=== PATIENT | female | born 2000 | race African-American/Black ===

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

== ENCOUNTER 2019-09-05 11:42 | Emergency (ER) | payer SELFPAY ==
[~2019-09-05] VITALS: Ht 160 cm; Wt 61.2 kg
[2019-09-05 12:10] VITALS: BP 119/72
[2019-09-05] MEDS ORDERED: IBUPROFEN 800 MG TAB PO ONE (14:15)
== END 2019-09-05 14:53 | disposition home or self-care (01) ==
LOC: ER 11:42
DX: M25.022 Hemarthrosis, left elbow (principal)
CPT/HCPCS: 29105; 73080

== ENCOUNTER 2020-07-18 11:21 | Emergency (ER) | payer MEDICAID ==
[~2020-07-18] VITALS: Ht 160 cm; Wt 65.8 kg
[2020-07-18 11:29] VITALS: BP 104/77
[2020-07-18] MEDS ORDERED: TETANUS-DIPTH-ACEL PERTUSSIS 0.5ML SYR Tdap IM ONE (12:00)
[2020-07-18] MEDS ORDERED: cefTRIAXone SOD 1,000 MG VL IM ONE (12:00)
[2020-07-18] MEDS ORDERED: IBUPROFEN 800 MG TAB PO ONE (12:45)
== END 2020-07-18 12:45 | disposition home or self-care (01) ==
LOC: ER 11:21
DX: S62.623A Displaced fracture of middle phalanx of left middle finger, initial encounter for closed fracture (principal); W18.09XA Striking against other object with subsequent fall, initial encounter; Y93.89 Activity, other specified; Y92.89 Other specified places as the place of occurrence of the external cause; Y99.8 Other external cause status
CPT/HCPCS: 29130; 73130

== ENCOUNTER 2021-03-20 16:31 | Emergency (ER) | payer SELFPAY ==
[~2021-03-20] VITALS: Ht 160 cm; Wt 58.5 kg
[2021-03-20 18:57] VITALS: BP 104/77
[2021-03-20 19:14] LABS: Urine Bacteria NONE SEEN /hpf (None Seen); Urine Blood 3+ /uL (Negative); Urine Mucus FEW (None Seen); Urine WBC 8 /hpf (0 - 5)
== END 2021-03-20 19:37 | disposition home or self-care (01) ==
LOC: ER 16:38
DX: N76.0 Acute vaginitis (principal); N39.0 Urinary tract infection, site not specified; R51.9 Headache, unspecified; Z32.02 Encounter for pregnancy test, result negative
CPT/HCPCS: 81001; 81025; 87210

== ENCOUNTER 2021-05-22 10:45 | Emergency (ER) | payer SELFPAY ==
[~2021-05-22] VITALS: Ht 160 cm; Wt 64.4 kg
[2021-05-22 12:00] VITALS: BP 133/84
== END 2021-05-22 12:14 | disposition home or self-care (01) ==
LOC: ER 10:45
DX: J40 Bronchitis, not specified as acute or chronic (principal); F12.10 Cannabis abuse, uncomplicated; Z20.822 Contact with and (suspected) exposure to COVID-19
CPT/HCPCS: 36415; 71045; 87426

== ENCOUNTER 2021-08-20 08:20 | Emergency (ER) | payer SELFPAY ==
[~2021-08-20] VITALS: Ht 160 cm; Wt 59.0 kg
[2021-08-20] MEDS ORDERED: DexAMETHasone SOD PHOS 10MG/1ML VIAL INJ IM ONE ×2 (09:15→09:45)
[2021-08-20 09:23] VITALS: BP 118/76
== END 2021-08-20 09:46 | disposition home or self-care (01) ==
LOC: ER 08:20
DX: J02.9 Acute pharyngitis, unspecified (principal)

== ENCOUNTER 2022-09-17 13:47 | Emergency (ER) | payer MEDICAID ==
[~2022-09-17] VITALS: Ht 160 cm; Wt 54.8 kg
[2022-09-17] MEDS ORDERED: AZIT250T8 PO (15:30)
[2022-09-17] MEDS ORDERED: IBUP600T28 PO (15:30)
[2022-09-17 15:33] VITALS: BP 102/78
== END 2022-09-17 15:45 | disposition home or self-care (01) ==
LOC: ER 13:47
DX: J03.90 Acute tonsillitis, unspecified (principal); F12.90 Cannabis use, unspecified, uncomplicated
CPT/HCPCS: 71045

== ENCOUNTER 2022-11-07 10:04 | Emergency (ER) | payer SELFPAY ==
[~2022-11-07] VITALS: Ht 160 cm; Wt 55.3 kg
[~2022-11-07 10:04] MED LIST: AZIT250T8 PO; IBUP600T28 PO
[2022-11-07 11:44] VITALS: BP 113/79
[2022-11-07] MEDS ORDERED: NAPR500T31 PO (12:14)
[2022-11-07] MEDS ORDERED: IBUPROFEN 600 MG TAB PO ONE (12:15)
== END 2022-11-07 12:40 | disposition home or self-care (01) ==
LOC: ER 10:04
DX: S60.111A Contusion of right thumb with damage to nail, initial encounter (principal); Z79.899 Other long term (current) drug therapy; F12.90 Cannabis use, unspecified, uncomplicated; X58.XXXA Exposure to other specified factors, initial encounter; Y93.89 Activity, other specified; Y92.89 Other specified places as the place of occurrence of the external cause; Y99.8 Other external cause status
CPT/HCPCS: 11740; 73140

== ENCOUNTER 2024-10-26 12:03 | Emergency (ER) | payer MEDICAID ==
[~2024-10-26] VITALS: Ht 160 cm; Wt 63.6 kg
[~2024-10-26 12:03] MED LIST changes: +AZIT-185 PO; -AZIT250T8 PO; +IBUP1TAB5 PO; -IBUP600T28 PO; +NAPR-746 PO
[2024-10-26] MEDS: ACETAMINOPHEN 325 MG TAB PO ONE (16:45)
--- NOTE | 2024-10-26 16:50 | ED.PDOC ---
History of Present Illness HPI Comments 24Y F presents to ED via EMS for chief complaint body pain x2days with SOB, fever, nausea, and productive cough. Pt denies chest pain and urinary symptoms. Pt took one of grandmother's [place] tablets at home. Pt states she does not know if the [place] helped alleviate symptoms as it made her go to sleep. Chief Complaint: Body Pain Time Seen by MD: 16:42 Primary Care Provider: None Reviewed Notes: Nurses Notes, Medications, Allergies Allergies: Coded Allergies: NO KNOWN ALLERGIES (Unverified , 07/06/14) Home Meds Active Scripts Potassium Chloride (Potassium Chloride ER) 10 Meq Tab, 10 MEQ PO BID for 10 Days, #20 TAB Prov:TONI LAWRENCE MD 10/26/24 Naproxen (Naproxen) 500 Mg Tab, 500 MG PO BID, #24 TAB Prov:ITZEL DODSON 11/07/22 Ibuprofen Micronized (Ibuprofen) 600 Mg Tab, 600 MG PO QID, #30 TAB Prov:ITZEL DODSON 09/17/22 Azithromycin (ZITHROMAX TABLET) 250 Mg Tb, 250 MG PO DAILY, #6 TAB Prov:ITZEL DODSON 09/17/22 Information Source: Patient, Relative (Grand mother) Mode of Arrival: EMS Severity: Mild Timing: Days Duration: Since onset Prehospital treatment: Accucheck Past Medical History PAST MEDICAL HISTORY: Denies Surgical History: Denies all surgeries WEIGHT SHIFTER History: No Pertinent WEIGHT SHIFTER History Family History Family History: Reviewed,noncontributory to illness Social History Smoker: Non-Smoker Alcohol: Denies ETOH Use Drugs: Marijuana Lives In: Home Constitutional: reports: fever; denies: chills, diaphoresis, fatigue, malaise, sweats, weakness, others EENTM: denies: blurred vision, double vision, ear bleeding, ear discharge, ear drainage, ear pain, ear ringing, eye pain, eye redness, hearing loss, mouth pain, mouth swelling, nasal discharge, nose bleeding, nose congestion, nose pain, photophobia, tearing, throat pain, throat swelling, voice changes, others Respiratory: reports: cough, shortness of breath; denies: hemoptysis, orthopnea, SOB at rest, SOB with excertion, stridor, wheezing, others Cardiovascular: denies: chest pain, dizzy spells, diaphoresis, Dyspnea on exertion, edema, irregular heart beat, left arm pain, lightheadedness, palpitations, PND, syncope, others Gastrointestinal: reports: nausea; denies: abdomen distended, abdominal pain, blood streaked bowels, constipated, diarrhea, dysphagia, difficulty swallowing, hematemesis, melena, poor appetite, poor fluid intake, rectal bleeding, rectal pain, vomiting, others Genitourinary: denies: abnormal vagina bleeding, burning, dyspareunia, dysuria, flank pain, frequency, hematuria, incontinence, pain, , vagina discharge, urgency, others Neurological: denies: dizziness, fainting, headache, left sided numbness, left sided weakness, numbness, paresthesia, pre-existing deficit, right sided numbness, right sided weakness, seizure, speech problems, tingling, tremors, weakness, others Musculoskeletal: reports: muscle pain; denies: back pain, gout, joint pain, joint swelling, muscle stiffness, neck pain, others Integumetry: denies: bruises, change in color, change in hair/nails, dryness, laceration, lesions, lumps, rash, wounds, others Allergic/Immunocompromised: denies: Difficulty Healing, Frequent Infections, Hives, Itching, others Hematologic/Lymphatic: denies: anemia, blood clots, easy bleeding, easy bruising, swollen glands, others Endocrine: denies: excessive hunger, excessive sweating, excessive thirst, excessive urination, flushing, intolerance to cold, intolerance to heat, unexplained weight gain, unexplained weight loss, others Psychiatric: denies: anxiety, bipolar disorder, depression, hopeless, panic disorder, schizophrenia, sleepless, suicidal, others All Other Systems: Reviewed and Negative Physical Exam General Appearance: No Apparent Distress, Normal HEENT: Normal ENT Inspection, Pharynx Normal, TMs Normal Neck: Full Range of Motion, Non-Tender, Normal, Normal Inspection Respiratory: Chest Non-Tender, Lungs Clear, No Accessory Muscle Use, No Respiratory Distress, Normal Breath Sounds Cardiovascular: No Edema, No JVD, No Murmur, No Gallop, Normal Peripheral Pulses, Regular Rate/Rhythm Breast Exam: Deferred Gastrointestinal: No Organomegaly, Non Tender, No Pulsatile Mass, Normal Bowel Sounds, Soft Genitalia: Deferred Pelvic: Deferred Rectal: Deferred Extremities: No calf tenderness, Normal capillary refill, Normal inspection, Normal range of motion, Non-tender, No pedal edema Musculoskeletal : Apperance: Normal Neurologic: Alert, operator command support systems II-XII nml as Tested, No Motor Deficits, Normal Affect, Normal Mood, No Sensory Deficits Cerebellar Function: NOT DONE Reflexes: NOT DONE Skin: Dry, Normal Color, Warm Lymphatic: No Adenopathy Was a procedure done? Was a procedure done?: No Differential Dx Considerations may include: Differential diagnosis includes but not limited to: Pneumonia, influenza, Covid- 19, bronchospasm, sepsis and others X-Ray, Labs, Meds, VS Vital Signs Date Time Temp Pulse Resp B/P (MAP) Pulse Ox O2 Delivery O2 Flow Rate FiO2 10/26/24 18:00 103 18 105/66 10/26/24 17:29 103 18 99 10/26/24 17:29 102.3 103 18 105/66 (79) 99 102.3 10/26/24 16:45 102.3 10/26/24 12:13 99.5 101 24 116/64 (81) 99 10/26/24 12:12 99 Nasal Cannula* 2 28 Lab Test 10/26/24 17:50 10/26/24 17:42 10/26/24 17:21 Range/Units Urine Color Yellow Yellow Urine Clarity Clear Clear Urine pH 7.0 5.0-9.0 Urine Specific [place] 1.035 1.001-1.035 Urine Protein Trace H Negative Urine Ketones 2+ H Negative Urine Blood Negative Negative /uL Urine Nitrite Negative Negative Urine Bilirubin Negative Negative Urine Urobilinogen 3 H Negative mg/dL Urine Leukocyte Esterase Negative Negative /uL Urine RBC 1 0 - 4 /hpf Urine WBC <1 0 - 5 /hpf Urine Squamous Epithelial Cells Few <5 /hpf Urine Bacteria None seen None Seen /hpf Urine Mucus Few None Seen Urine Glucose Normal Normal mg/dL Urine Test Negative Negative White Blood Count 3.4 L 4.4-10.8 10^3/uL Red Blood Count 4.30 4.0-5.20 10^6/uL Hemoglobin 12.1 L 12.2-16.2 g/dL Hematocrit 36.1 36.0-46.0 % Mean Corpuscular Volume 84.0 80.0-100.0 fL Mean Corpuscular Hemoglobin 28.2 28.0-32.0 pg Mean Corpuscular Hemoglobin Concent 33.6 32.0-36.0 g/dL Red Cell Distribution Width 13.2 11.8-14.3 % Platelet Count 193 140-450 10^3/uL Mean Platelet Volume 8.9 6.9-10.8 fL Neutrophils (%) (Auto) 64.1 37.0-80.0 % Lymphocytes (%) (Auto) 21.4 10.0-50.0 % Monocytes (%) (Auto) 13.2 H 0.0-12.0 % Eosinophils (%) (Auto) 0.9 0.0-7.0 % Basophils (%) (Auto) 0.4 0.0-2.0 % Neutrophils # (Auto) 2.2 1.6-8.6 10 ^3/uL Lymphocytes # (Auto) 0.7 0.4-5.4 10 ^3/uL Monocytes # (Auto) 0.4 0-1.3 10 ^3/uL Eosinophils # (Auto) 0 0-0.8 10 ^3/uL Basophils # (Auto) 0 0-0.2 10 ^3/uL Nucleated Red Blood Cells 0.1 % Sodium Level 140 136-145 mmol/L Potassium Level 3.0 L 3.5-5.1 mmol/L Chloride Level 106 98-107 mmol/L Carbon Dioxide Level 25 20-31 mmol/L Anion Gap 9 5-15 Blood Urea Nitrogen 10 9-23 mg/dL Creatinine 0.78 0.550-1.02 mg/dL Glomerular Filtration Rate Calc 108 >90 mL/min BUN/Creatinine Ratio 12.8 10.0-20.0 Serum Glucose 89 74-106 mg/dL Calcium Level 10.0 8.7-10.4 mg/dL Influenza Type A Antigen Negative Negative Influenza Type B Antigen Negative Negative SARS-CoV-2 Antigen (Rapid) Negative NEGATIVE Current Medications Medications (Trade) Dose Ordered Sig/Ophelia Route Start Time Stop Time Status Last Admin Acetaminophen (Tylenol Tablet) 650 mg ONCE ONCE PO 10/26/24 16:45 10/26/24 16:47 DC 10/26/24 16:45 Ondansetron HCl (Zofran) 4 mg ONCE ONCE IV 10/26/24 16:45 10/26/24 16:47 DC 10/26/24 17:57 Morphine Sulfate 4 mg ONCE ONCE IV 10/26/24 16:45 1/2/25 16:47 DC 10/26/24 18:00 Famotidine (Pepcid Injection) 20 mg ONCE ONCE IV 10/26/24 16:45 10/26/24 16:47 DC 10/26/24 17:58 Time of 1ST Reevaluation: 17:12 Reevaluation 1ST: Unchanged Patient Education/Counseling: Diagnosis, Treatment Family Education/Counseling: Diagnosis, Treatment Departure 1 Departure Time of Disposition: 19:08 Impression: Primary Impression: URI (upper respiratory infection) Additional Impression: Hypokalemia Disposition: 01 HOME / SELF CARE / HOMELESS Condition: Stable e-Prescriptions Potassium Chloride (Potassium Chloride ER) 10 Meq Tab 10 MEQ PO BID for 10 Days, #20 TAB Prov: TONI LAWRENCE MD 10/26/24 Discharged With: Self Critical Care Note Critical Care Time?: No Stability Stability form required: No Heart Score Heart Score: Heart Score Response (Comments) Value History N/A 0 EKG N/A 0 Age N/A 0 Risk Factors N/A 0 Troponin N/A 0 Total 0 I personally scribed for BRIJESH LIRA MD ([email or web address]) on 10/26/24 at 16:50. Electronically submitted by Jennifer Barker ([email or web address]). BRIJESH LIRA MD Oct 26, 2024 16:50 TONI LAWRENCE MD Oct 26, 2024 19:10
[2024-10-26] MEDS: ONDANSETRON HCL 4 MG/2 ML VIAL IV ONE (17:57)
[2024-10-26] MEDS: FAMOTIDINE (10MG/ML) 2ML VL IV ONE (17:58)
[2024-10-26] MEDS: MORPHINE SULFATE 4 MG/ML SYR/VIAL IV ONE (18:00)
[2024-10-26 18:01] LABS: Urine Bacteria None Seen /hpf (None Seen)
[2024-10-26 18:03] LABS: Basophils # (auto) 0 10 ^3/uL (0-0.2); Basophils % (auto) 0.4 % (0.0-2.0); Eosinophils # (auto) 0 10 ^3/uL (0-0.8); Eosinophils % (auto) 0.9 % (0.0-7.0); Hematocrit 36.1 % (36.0-46.0); Hemoglobin 12.1 g/dL (12.2-16.2); Lymphocytes # (auto) 0.7 10 ^3/uL (0.4-5.4); Lymphocytes % (auto) 21.4 % (10.0-50.0); Mean Corpuscular Hemoglobin 28.2 pg (28.0-32.0); Mean Corpuscular Hgb Conc. 33.6 g/dL (32.0-36.0); Monocytes # (auto) 0.4 10 ^3/uL (0-1.3); Monocytes % (auto) 13.2 % (0.0-12.0); Neutrophils # (auto) 2.2 10 ^3/uL (1.6-8.6); Neutrophils % (auto) 64.1 % (37.0-80.0); Nucleated Red Blood Cells % 0.1 %; Platelet Count (auto) 193 10^3/uL (140-450); Red Cell Distribution Width 13.2 % (11.8-14.3); White Blood Cell 3.4 10^3/uL (4.4-10.8)
[2024-10-26 18:11] LABS: Chloride 106 mmol/L (98-107); Sodium 140 mmol/L (136-145)
[2024-10-26 18:12] LABS: Urine Blood Negative /uL (Negative); Urine Clarity Clear (Clear); Urine Color Yellow (Yellow); Urine Mucus FEW (None Seen); Urine Protein, UAD TRACE (Negative); Urine Specific Gravity 1.035 (1.001-1.035); Urine Squamous Epithelial Cell FEW /hpf (<5); Urine Urobilinogen 3 mg/dL (Negative); Urine WBC <1 /hpf (0 - 5)
[2024-10-26 18:12] LABS: Anion Gap 9 (5-15); Carbon Dioxide 25 mmol/L (20-31)
[2024-10-26 18:17] LABS: BUN/Creatinine Ratio 12.8 (10.0-20.0); Blood Urea Nitrogen 10 mg/dL (9-23); Glucose 89 mg/dL (74-106)
[2024-10-26 18:19] LABS: COVID19 ANTIGEN SOFIA FIA NEGATIVE (NEGATIVE)
[2024-10-26 18:20] LABS: Rapid Influenza A Negative (Negative); Rapid Influenza B Negative (Negative)
--- NOTE | 2024-10-26 18:48 | DVH ---
CHEST RADIOGRAPH Indication: cough Technique: Frontal and lateral view of the chest was obtained Comparison: None FINDINGS: Lines and Tubes: None Lungs: Clear Pleura: No effusion. No pneumothorax. Cardiomediastinal contours: Unremarkable Bones: Unremarkable IMPRESSION: 1. No evidence of acute disease.
[2024-10-26] MEDS ORDERED: POTA-228 PO (19:07)
[2024-10-26] MEDS: POTASSIUM CHL 20 Meq TABLET PO ONE (19:34)
[2024-10-26 19:40] VITALS: BP 112/62; PULSE 86; RESP 17; TEMP 99.4; O2SAT 98
== END 2024-10-26 19:41 | disposition home or self-care (01) ==
LOC: EDBD 12:03 → EDUNIT# 12:03 → ER 12:03
DX: E87.6 Hypokalemia (principal); J06.9 Acute upper respiratory infection, unspecified; Z79.899 Other long term (current) drug therapy; Z20.822 Contact with and (suspected) exposure to COVID-19
CPT/HCPCS: 36415; 71046; 80048; 81001; 81025; 85025; 87426; 87804; 96374; 96375; 99284; J2270; J2405; J3490

== ENCOUNTER 2024-10-30 15:01 | Emergency (ER) | payer MEDICAID ==
[~2024-10-30] VITALS: Ht 154.9 cm; Wt 58.5 kg
[~2024-10-30 15:01] MED LIST changes: +POTA-228 PO
[2024-10-30 16:59] LABS: Basophils # (auto) 0 10 ^3/uL (0-0.2); Eosinophils # (auto) 0 10 ^3/uL (0-0.8); Eosinophils % (auto) 0.6 % (0.0-7.0); Hematocrit 41.4 % (36.0-46.0); Hemoglobin 13.5 g/dL (12.2-16.2); Lymphocytes # (auto) 1.9 10 ^3/uL (0.4-5.4); Lymphocytes % (auto) 48.8 % (10.0-50.0); Mean Corpuscular Hemoglobin 27.3 pg (28.0-32.0); Mean Corpuscular Hgb Conc. 32.6 g/dL (32.0-36.0); Mean Corpuscular Volume 83.6 fL (80.0-100.0); Monocytes # (auto) 0.3 10 ^3/uL (0-1.3); Monocytes % (auto) 7.8 % (0.0-12.0); Neutrophils # (auto) 1.6 10 ^3/uL (1.6-8.6); Neutrophils % (auto) 41.8 % (37.0-80.0); Nucleated Red Blood Cells % 0.1 %; Platelet Count (auto) 258 10^3/uL (140-450); Red Blood Cells 4.96 10^6/uL (4.0-5.20); White Blood Cell 3.9 10^3/uL (4.4-10.8)
[2024-10-30 17:11] LABS: Chloride 106 mmol/L (98-107); Potassium 4.2 mmol/L (3.5-5.1); Sodium 141 mmol/L (136-145)
[2024-10-30 17:12] LABS: Anion Gap 9 (5-15); Carbon Dioxide 26 mmol/L (20-31)
[2024-10-30 17:17] LABS: Alkaline Phosphatase 79 U/L (46-116); BUN/Creatinine Ratio 11.3 (10.0-20.0); Glucose 81 mg/dL (74-106)
[2024-10-30 17:19] LABS: Albumin 5.1 g/dL (3.2-4.8); Aspartate Aminotransferase 17 U/L (13-40); Bilirubin, Total 0.5 mg/dL (0.2-1.0); Blood Urea Nitrogen 8 mg/dL (9-23); Calcium 10.7 mg/dL (8.7-10.4); Total Protein 8.3 g/dL (5.7-8.2)
[2024-10-30 17:48] LABS: Alanine Aminotransferase 12 U/L (7-40)
[2024-10-30] MEDS ORDERED: PROM1SOL4 PO (18:53)
[2024-10-30] MEDS ORDERED: MONT10TA23 PO (18:53)
[2024-10-30] MEDS ORDERED: AZITTAB PO (18:53)
--- NOTE | 2024-10-30 18:53 | ED.PDOC ---
History of Present Illness HPI Comments 24-year-old female complaining of cough and congestion x1 week. States she was seen last week for her coughing congestion. She was only prescribed potassium 10 mEq use. Says she was having some nausea and vomiting. No diarrhea. No chest pain no shortness a breath. States her congestion is still not improved. Chief Complaint: Nausea/Vomiting Time Seen by MD: 15:49 Primary Care Provider: none Reviewed Notes: Nurses Notes Allergies: Coded Allergies: NO KNOWN ALLERGIES (Unverified , 07/06/14) Home Meds Active Scripts Potassium Chloride (Potassium Chloride ER) 10 Meq Tab, 10 MEQ PO BID for 10 Days, #20 TAB Prov:TONI LAWRENCE MD 10/26/24 Naproxen (Naproxen) 500 Mg Tab, 500 MG PO BID, #24 TAB Prov:ITZEL DODSON 11/07/22 Ibuprofen Micronized (Ibuprofen) 600 Mg Tab, 600 MG PO QID, #30 TAB Prov:ITZEL DODSON 09/17/22 Azithromycin (ZITHROMAX TABLET) 250 Mg Tb, 250 MG PO DAILY, #6 TAB Prov:ITZEL DODSON 09/17/22 Information Source: Patient Mode of Arrival: Ambulatory Past Medical History PAST MEDICAL HISTORY: Denies Surgical History: Denies all surgeries ALTERATION TAILOR APPRENTICE History: No Pertinent ALTERATION TAILOR APPRENTICE History Family History Family History: Reviewed,noncontributory to illness Social History Smoker: Non-Smoker Alcohol: Denies ETOH Use Drugs: Marijuana Lives In: Home Constitutional: denies: chills, diaphoresis, fatigue, fever, malaise, sweats, weakness, others EENTM: reports: nose congestion; denies: blurred vision, double vision, ear bleeding, ear discharge, ear drainage, ear pain, ear ringing, eye pain, eye redness, hearing loss, mouth pain, mouth swelling, nasal discharge, nose bleeding, nose pain, photophobia, tearing, throat pain, throat swelling, voice changes, others Respiratory: reports: cough; denies: hemoptysis, orthopnea, SOB at rest, shortness of breath, SOB with excertion, stridor, wheezing, others Cardiovascular: denies: chest pain, dizzy spells, diaphoresis, Dyspnea on exertion, edema, irregular heart beat, left arm pain, lightheadedness, palpitations, PND, syncope, others Gastrointestinal: reports: nausea, vomiting; denies: abdomen distended, abdominal pain, blood streaked bowels, constipated, diarrhea, dysphagia, difficulty swallowing, hematemesis, melena, poor appetite, poor fluid intake, rectal bleeding, rectal pain, others Genitourinary: denies: abnormal vagina bleeding, burning, dyspareunia, dysuria, flank pain, frequency, hematuria, incontinence, pain, , vagina discharge, urgency, others Neurological: denies: dizziness, fainting, headache, left sided numbness, left sided weakness, numbness, paresthesia, pre-existing deficit, right sided numbness, right sided weakness, seizure, speech problems, tingling, tremors, weakness, others Musculoskeletal: denies: back pain, gout, joint pain, joint swelling, muscle pain, muscle stiffness, neck pain, others Integumetry: denies: bruises, change in color, change in hair/nails, dryness, laceration, lesions, lumps, rash, wounds, others Allergic/Immunocompromised: denies: Difficulty Healing, Frequent Infections, Hives, Itching, others Hematologic/Lymphatic: denies: anemia, blood clots, easy bleeding, easy bruising, swollen glands, others Endocrine: denies: excessive hunger, excessive sweating, excessive thirst, excessive urination, flushing, intolerance to cold, intolerance to heat, unexplained weight gain, unexplained weight loss, others Psychiatric: denies: anxiety, bipolar disorder, depression, hopeless, panic disorder, schizophrenia, sleepless, suicidal, others Physical Exam General Appearance: No Apparent Distress, Normal HEENT: Normal ENT Inspection, Pharynx Normal, TMs Normal Neck: Full Range of Motion, Non-Tender, Normal, Normal Inspection Respiratory: Chest Non-Tender, Lungs Clear, No Accessory Muscle Use, No Respiratory Distress, Normal Breath Sounds Cardiovascular: No Edema, No JVD, No Murmur, No Gallop, Normal Peripheral Pulses, Regular Rate/Rhythm Breast Exam: Deferred Gastrointestinal: No Organomegaly, Non Tender, No Pulsatile Mass, Normal Bowel Sounds, Soft Genitalia: Deferred Pelvic: Deferred Rectal: Deferred Extremities: No calf tenderness, Normal capillary refill, Normal inspection, Normal range of motion, Non-tender, No pedal edema Musculoskeletal : Apperance: Normal Neurologic: Alert, shank breaker II-XII nml as Tested, No Motor Deficits, Normal Affect, Normal Mood, No Sensory Deficits Cerebellar Function: Normal Reflexes: Normal Skin: Dry, Normal Color, Warm Lymphatic: No Adenopathy Was a procedure done? Was a procedure done?: No Differential Dx Considerations may include: URI, influenza, COVID, strep throat, pharyngitis, pneumonia X-Ray, Labs, Meds, VS Vital Signs Date Time Temp Pulse Resp B/P (MAP) Pulse Ox O2 Delivery O2 Flow Rate FiO2 10/30/24 16:08 98.0 91 17 121/83 (96) 100 Lab Test 10/30/24 16:37 Range/Units White Blood Count 3.9 L 4.4-10.8 10^3/uL Red Blood Count 4.96 4.0-5.20 10^6/uL Hemoglobin 13.5 12.2-16.2 g/dL Hematocrit 41.4 # 36.0-46.0 % Mean Corpuscular Volume 83.6 80.0-100.0 fL Mean Corpuscular Hemoglobin 27.3 L 28.0-32.0 pg Mean Corpuscular Hemoglobin Concent 32.6 32.0-36.0 g/dL Red Cell Distribution Width 13.0 11.8-14.3 % Platelet Count 258 140-450 10^3/uL Mean Platelet Volume 8.7 6.9-10.8 fL Neutrophils (%) (Auto) 41.8 37.0-80.0 % Lymphocytes (%) (Auto) 48.8 10.0-50.0 % Monocytes (%) (Auto) 7.8 0.0-12.0 % Eosinophils (%) (Auto) 0.6 0.0-7.0 % Basophils (%) (Auto) 1.0 0.0-2.0 % Neutrophils # (Auto) 1.6 1.6-8.6 10 ^3/uL Lymphocytes # (Auto) 1.9 0.4-5.4 10 ^3/uL Monocytes # (Auto) 0.3 0-1.3 10 ^3/uL Eosinophils # (Auto) 0 0-0.8 10 ^3/uL Basophils # (Auto) 0 0-0.2 10 ^3/uL Nucleated Red Blood Cells 0.1 % Sodium Level 141 136-145 mmol/L Potassium Level 4.2 3.5-5.1 mmol/L Chloride Level 106 98-107 mmol/L Carbon Dioxide Level 26 20-31 mmol/L Anion Gap 9 5-15 Blood Urea Nitrogen 8 L 9-23 mg/dL Creatinine 0.71 0.550-1.02 mg/dL Glomerular Filtration Rate Calc 121 >90 mL/min BUN/Creatinine Ratio 11.3 10.0-20.0 Serum Glucose 81 74-106 mg/dL Calcium Level 10.7 H 8.7-10.4 mg/dL Total Bilirubin 0.5 0.2-1.0 mg/dL Aspartate Amino Transferase (AST) 17 13-40 U/L Alanine Aminotransferase (ALT) 12 7-40 U/L Alkaline Phosphatase 79 46-116 U/L Total Protein 8.3 H 5.7-8.2 g/dL Albumin 5.1 H 3.2-4.8 g/dL X-Ray, Labs, Meds, VS Comment Imaging: X-rays and CT scans were reviewed and interpreted by this provider, imaging shows no fractures and no pathological disease. Pending radiology review. Laboratory: Labs reviewed and interpreted by this provider. No significant abnormalities noted. Patient has prior medical visits reviewed. Med reconciliation performed Vital signs reviewed Time of 1ST Reevaluation: 18:53 Reevaluation 1ST: Improved Patient Education/Counseling: Diagnosis, Treatment, Need For Follow Up (Patient advised to follow-up in the emergency room in the next 24 to 48 hours if symptoms do not improve. Advised follow-up with PCP in the next 3 to 5 days. Patient verbalized understanding. ) Family Education/Counseling: Diagnosis Departure 1 Departure Time of Disposition: 18:51 Impression: Primary Impression: URI (upper respiratory infection) Qualified Codes: J06.9 - Acute upper respiratory infection, unspecified Disposition: HOME / SELF CARE / HOMELESS Condition: Fair e-Prescriptions Promethazine-Dm (Promethazine Dm 6.25-15 mg/5Ml) 1 Kamilla Kamilla 5 ML PO TID PRN, #240 ML Prov: KRYSTEN WILSON 10/30/24 Montelukast Sodium (Singulair) 10 Mg Tab 10 MG PO DAILY for 30 Days, #30 TAB Prov: KRYSTEN WILSON 10/30/24 Azithromycin (Zithromax Z-Andi) 250 Mg Tab 250 MG PO DAILY for 5 Days, #6 TAB Prov: KRYSTEN WILSON 10/30/24 Discharged With: Self Critical Care Note Critical Care Time?: No Stability Stability form required: No Heart Score Heart Score: Heart Score Response (Comments) Value History N/A 0 EKG N/A 0 Age N/A 0 Risk Factors N/A 0 Troponin N/A 0 Total 0 KRYSTEN WILSON Oct 30, 2024 18:53
--- NOTE | 2024-10-30 18:57 | ED.PDOC ---
History of Present Illness HPI Comments 24 y/o F presents with c/o cough, congestion, nausea, and vomiting, today. Patient endorses on having cough and congestion for, approximately, 1x week, with recent onset of nausea and vomiting symptoms, lately. She comments on being, medically, evaluated and discharged from [facility], recently, with K+ supplements that she endorses on having no improvement or relief of her symptoms since. She denies having any fever, chills, hematemesis, headache, abdominal pain, or other associated symptoms or modifiers at this time. Chief Complaint: Nausea/Vomiting Time Seen by MD: 16:00 Primary Care Provider: none Reviewed Notes: Nurses Notes, Medications, Allergies Allergies: Coded Allergies: NO KNOWN ALLERGIES (Unverified , 07/06/14) Home Meds Active Scripts Potassium Chloride (Potassium Chloride ER) 10 Meq Tab, 10 MEQ PO BID for 10 Days, #20 TAB Prov:TONI LAWRENCE MD 10/26/24 Naproxen (Naproxen) 500 Mg Tab, 500 MG PO BID, #24 TAB Prov:ITZEL DODSON 11/07/22 Ibuprofen Micronized (Ibuprofen) 600 Mg Tab, 600 MG PO QID, #30 TAB Prov:ITZEL DODSON 09/17/22 Azithromycin (ZITHROMAX TABLET) 250 Mg Tb, 250 MG PO DAILY, #6 TAB Prov:ITZEL DODSON 09/17/22 Information Source: Patient Mode of Arrival: Ambulatory Severity: Moderate Timing: Weeks Duration: Since onset Prehospital treatment: None Past Medical History PAST MEDICAL HISTORY: Denies Surgical History: Denies all surgeries DYSLEXIA TEACHER History: No Pertinent DYSLEXIA TEACHER History Family History Family History: Reviewed,noncontributory to illness Social History Smoker: Non-Smoker Alcohol: Denies ETOH Use Drugs: Marijuana Lives In: Home EENTM: reports: nose congestion Respiratory: reports: cough Gastrointestinal: reports: nausea, vomiting All Other Systems: Reviewed and Negative (negative unless otherwise stated above or in HPI) Physical Exam General Appearance: No Apparent Distress, Normal HEENT: Normal ENT Inspection, Pharynx Normal, TMs Normal Neck: Full Range of Motion, Non-Tender, Normal, Normal Inspection Respiratory: Chest Non-Tender, Lungs Clear, No Accessory Muscle Use, No Respiratory Distress, Normal Breath Sounds Cardiovascular: No Edema, No JVD, No Murmur, No Gallop, Normal Peripheral Pulses, Regular Rate/Rhythm Breast Exam: Deferred Gastrointestinal: No Organomegaly, Non Tender, No Pulsatile Mass, Normal Bowel Sounds, Soft Genitalia: Deferred Pelvic: Deferred Rectal: Deferred Extremities: No calf tenderness, Normal capillary refill, Normal inspection, Normal range of motion, Non-tender, No pedal edema Musculoskeletal : Apperance: Normal Neurologic: Alert, schedule manager II-XII nml as Tested, No Motor Deficits, Normal Affect, Normal Mood, No Sensory Deficits Cerebellar Function: Normal Reflexes: Normal Skin: Dry, Normal Color, Warm Lymphatic: No Adenopathy Was a procedure done? Was a procedure done?: No Differential Dx Considerations may include: viral syndrome, URI, pleural effusions, gastritis, gastroenteritis, spoiled food, X-Ray, Labs, Meds, VS Vital Signs Date Time Temp Pulse Resp B/P (MAP) Pulse Ox O2 Delivery O2 Flow Rate FiO2 10/30/24 16:08 98.0 91 17 121/83 (96) 100 Lab Test 10/30/24 16:37 Range/Units White Blood Count 3.9 L 4.4-10.8 10^3/uL Red Blood Count 4.96 4.0-5.20 10^6/uL Hemoglobin 13.5 12.2-16.2 g/dL Hematocrit 41.4 # 36.0-46.0 % Mean Corpuscular Volume 83.6 80.0-100.0 fL Mean Corpuscular Hemoglobin 27.3 L 28.0-32.0 pg Mean Corpuscular Hemoglobin Concent 32.6 32.0-36.0 g/dL Red Cell Distribution Width 13.0 11.8-14.3 % Platelet Count 258 140-450 10^3/uL Mean Platelet Volume 8.7 6.9-10.8 fL Neutrophils (%) (Auto) 41.8 37.0-80.0 % Lymphocytes (%) (Auto) 48.8 10.0-50.0 % Monocytes (%) (Auto) 7.8 0.0-12.0 % Eosinophils (%) (Auto) 0.6 0.0-7.0 % Basophils (%) (Auto) 1.0 0.0-2.0 % Neutrophils # (Auto) 1.6 1.6-8.6 10 ^3/uL Lymphocytes # (Auto) 1.9 0.4-5.4 10 ^3/uL Monocytes # (Auto) 0.3 0-1.3 10 ^3/uL Eosinophils # (Auto) 0 0-0.8 10 ^3/uL Basophils # (Auto) 0 0-0.2 10 ^3/uL Nucleated Red Blood Cells 0.1 % Sodium Level 141 136-145 mmol/L Potassium Level 4.2 3.5-5.1 mmol/L Chloride Level 106 98-107 mmol/L Carbon Dioxide Level 26 20-31 mmol/L Anion Gap 9 5-15 Blood Urea Nitrogen 8 L 9-23 mg/dL Creatinine 0.71 0.550-1.02 mg/dL Glomerular Filtration Rate Calc 121 >90 mL/min BUN/Creatinine Ratio 11.3 10.0-20.0 Serum Glucose 81 74-106 mg/dL Calcium Level 10.7 H 8.7-10.4 mg/dL Total Bilirubin 0.5 0.2-1.0 mg/dL Aspartate Amino Transferase (AST) 17 13-40 U/L Alanine Aminotransferase (ALT) 12 7-40 U/L Alkaline Phosphatase 79 46-116 U/L Total Protein 8.3 H 5.7-8.2 g/dL Albumin 5.1 H 3.2-4.8 g/dL Time of 1ST Reevaluation: 16:30 Reevaluation 1ST: Unchanged Patient Education/Counseling: Diagnosis, Treatment Family Education/Counseling: No Family Present Critical Care Note Critical Care Time?: No Stability Stability form required: No Heart Score Heart Score: Heart Score Response (Comments) Value History N/A 0 EKG N/A 0 Age N/A 0 Risk Factors N/A 0 Troponin N/A 0 Total 0 I personally scribed for KRYSTEN WILSON ([email or web address]) on 10/30/24 at 18:57. Electronically submitted by Bruce Allen ([email or web address]). KRYSTEN WILSON Oct 30, 2024 18:57
[2024-10-30 19:39] VITALS: BP 113/62; PULSE 83; RESP 16; TEMP 98.2; O2SAT 100
[2024-10-30] MEDS: ONDANSETRON ODT 4 MG TAB PO ONE (19:47)
== END 2024-10-30 19:42 | disposition home or self-care (01) ==
LOC: ER 15:01
DX: J06.9 Acute upper respiratory infection, unspecified (principal); F15.90 Other stimulant use, unspecified, uncomplicated; Z79.899 Other long term (current) drug therapy
CPT/HCPCS: 36415; 80053; 85025; 99283; Q0162